=== PATIENT | female | born 1990 ===

== ENCOUNTER 2017-01-07 09:38 | Emergency (ER) | payer SELFPAY ==
[2017-01-07 09:47] VITALS: BP 129/75; BMI 40.7
--- NOTE | 2017-01-07 10:37 | DR.PREG ---
HPI - Time seen Time seen: 10:33 - PCP Primary Care Physician: [facility] - Chief Complaint Chief Complaint Doctors Comments: Patient states she is 5-6 weeks and has been spotting a little with stomach cramps for the past two days. Patient states she has been having suprapubic cramps like when she has her period and had a small clot with two areas of spotting on her pad. she is a patient at the [facility]. States her last period was 22 November 2016. She denies dysuria, hematuria, cold, cough, fever or chills. States this is her first and she has not had sex x2 weeks. States her stomach is not hurting just having cramps at times. Chief Complaint:: bleeding slightly, 6 weeks - Nurses Notes Reviewed Nurses Notes Review: Yes - Source History Provided: Patient, Family Member - Mode of Arrival Mode of Arrival: Ambulatory - Context Complains of: Vaginal bleeding History of: None : 1 Care: Yes - Location Location: pain: Suprapubic - Quality Pain: Cramping Vaginal fluid leakage color: Deferred - Timing Onset of Chief Complaint: 01/07/17 Came on: Gradually Pain: Present Now Pain: None - Severity Vaginal Bleeding: Deferred Vaginal Leakage: None - Associated Signs & Symptoms Asociated signs & symptoms: None PMH - PMH Past Medical History: No Past Surgical History: No - Family History History of Family Medical Conditions: Yes Family Medical History: Diabetes Mellitus, Hypertension - Social History Does patient currently use any type of tobacco product: No Have you used tobacco products in the last 12 months: No Type of Tobacco Use: None Does any household member use tobacco: No Alcohol Use: None Do you use any recreational Drugs:: No Lives With: Spouse Lives Where: Home - infectious screening In the last 2 months have you had wt loss of >10#?: NO Have you had fever, night sweats or hemotysis?: No Have you traveled outside the country in the last 6 months?: No Isolation: Standard ROS - Review of Systems Constitutional: No Symptoms Reported. negative: See HPI, Chills, Diaphoresis, Fever, Malaise, Weakness, Irritable, Fatigue, Loss of Appetite, Other Eyes: No Symptoms Reported. negative: See HPI, Eye Pain, Blurred Vision, Tearing, Discharge, Photophobia, Diplopia, Other ENTM: No Symptoms Reported Respiratoy: No Symptoms Reported. negative: See HPI, Productive Cough, Non- Productive Cough, Moist Cough, Dry Cough, Hacking Cough, Barking Cough, Brassy Cough, Orthopnea, Short of Breath, Stridor, Wheezing, Hemoptysis, Other Cardiovascular: No Symptoms Reported. negative: See HPI, Chest Pain, Edema, Palpitations, Syncope, Cyanosis, Skin Mottling, Other Gastrointestinal/Abdominal: No Symptoms Reported. negative: See HPI, Abdominal Pain, Constipation, Diarrhea, Nausea, Vomiting, Food Intolerance, Other Genitourinary: No Symptoms Reported. negative: See HPI, Discharge, Dysuria, Frequency, Hematuria, Pain, Bleeding, Other Neurological: No Symptoms Reported Musculoskeletal: No Symptoms Reported Integumentary: No Symptoms Reported. negative: See HPI, Change in Color, Change in Hair/Nails, Dryness, Lesions, Lumps, Rash, Itching, Wound, Bruises, Juandice, Other Hematologic/Lymphatic: No Symptoms Reported Endocrine: No Symptoms Reported Psychiatric: No Symptoms Reported PE - Vital Signs Vitals: Temperature 98.5 F Pulse Rate 90 Respiratory Rate 20 Blood Pressure 129/75 O2 Sat by Pulse Oximetry 100 - General Limitations: No Limitations General Appearance: Alert, In No Apparent Distress - Head Head Exam: Normal Inspection, Atraumatic, Normocephalic - Eyes Eye exam: Normal Appearance, PERRL, EOMI. negative: Scleral Icterus, Conjunctival Injection, Nystagmus, Miosis, Mydrasis, Periorbital Swelling, Periorbital Tenderness, Other - ENT ENT Exam: Normal Exam, Normal Oropharynx, Normal External Ear Exam, Mucous Membranes Moist, TM's Normal Bilaterally - Neck Neck Exam: Normal Inspection, Full ROM, Trachea Midline. negative: Tenderness, Meningismus, Lymphadenopathy, Thyromegaly, Other - Chest Chest Inspection: Normal Inspection, Symmetric Chest Wall Rise. negative: Tenderness, Rash, Abscess, Other - Respiratory Respiratory Exam: Normal Lung Sounds Bilat Respiratory Exam: Bilateral Clear to Auscultation - Cardiovascular Cardiovascular Exam: Regular Rate, Normal Rhythm, Normal Heart Sounds. negative : Bradycardia, Tachycardia, Irregular Rhythm, Systolic Murmur, Diastolic Murmur , Rubs, Gallop, Clicks, JVD, +S1, +S2, +S3, +S4, Other - Abdominal Exam Abdominal Exam: Normal Inspection, Normal Bowel Sounds, Soft. negative: Distention, Tenderness, Guarding, Rebound, Rigidity, Dimnished Bowel Sounds, Hyperactive Bowel Sounds, Hypoactive Bowel Sounds, Organomegaly, Trauma, Incision, Ascites, Mass, Bruit, Pulsatile Mass, Hernia, Other Abdominal Tenderness: negative: RUQ, RLQ, LUQ, LLQ, Epigastrium, Suprapubic, Diffuse, Mild, Moderate, Severe, Other - Exam Type: N/A - Back Back Exam: Normal Inspection, Full ROM. negative: Tenderness, (R) CVA Tenderness, (L) CVA Tenderness, Muscle Spasm, Paraspinal Tenderness, Vertebral Tenderness, Rashes, (R) Sciatic Notch Tenderness, (L) Sciatic Notch Tendern, (R ) Straight Leg Raise, (L) Straight Leg Raise, Other - Extremeties Extremities Exam: Normal Inspection, Full ROM, Normal Capillary Refill. negative: Tenderness, Edema, Joint Swelling, Calf Tenderness, Other - Neurologic Neurological Exam: Alert, Oriented X3, CN II-XII Intact, Normal Gait, Reflexes Normal. negative: Motor Sensory Deficit, Other - Psychiatric Psychiatric Exam: Normal Affect, Normal Mood. negative: Depressed, Agitated, Anxious, Flat Affect, Manic, Homicidal Ideation, Suicidal Ideation, Other - Skin Skin Exam: Warm, Dry, Intact, Normal Color. negative: Rash, Cyanosis, Diaphoresis, Erythema, Pallor, Mottled, Other ROR - Labs Reviewed Laboratory Results Reviewed?: Yes (all labs results reviewed and discussed with patient and family) Result Diagrams: 01/07/17 10:52 01/07/17 10:52 Laboratory: WBC 9.2 X10^3/uL (3.6-10.0) 01/07/17 10:52 RBC 4.85 X10^6/uL (3.5-5.4) 01/07/17 10:52 Hgb 11.1 g/dL (12.0-16.0) L 01/07/17 10:52 Hct 33.3 % (36.0-47.0) L 01/07/17 10:52 MCV 68.7 fL (80.0-100.0) L 01/07/17 10:52 MCH 22.8 pg (27.0-34.0) L 01/07/17 10:52 MCHC 33.2 g/dL (33.0-35.0) 01/07/17 10:52 RDW 17.6 % (11.6-16.5) H 01/07/17 10:52 Plt Count 452 X10^3/uL (150.0-450.0) H 01/07/17 10:52 Plt Count Comment Adequate (ADEQUATE) 01/07/17 10:52 MPV 7.5 fL (7.4-11.0) 01/07/17 10:52 Neut % 59.5 % (42.0-75.0) 01/07/17 10:52 Lymph % 29.9 % (21.0-51.0) 01/07/17 10:52 [place] % 7.3 % (0.0-13.0) 01/07/17 10:52 Eos % 2.8 % (0.9-2.9) 01/07/17 10:52 Baso % 0.5 % (0.2-1.0) 01/07/17 10:52 Neut # 5.5 x10^3/uL (2.2-4.8) H 01/07/17 10:52 Lymph # 2.8 X10^3/uL (1.3-2.9) 01/07/17 10:52 [place] # 0.7 x10^3/uL (0.3-0.8) 01/07/17 10:52 Eos # 0.3 x10^3/uL (0.0-0.2) H 01/07/17 10:52 Baso # 0.0 X10^3/uL (0.0-0.1) 01/07/17 10:52 Absolute Nucleated RBC 0.0 /100WBC 01/07/17 10:52 Plt Morphology Comment Normal (NORMAL) 01/07/17 10:52 RBC Morphology Abnormal (NORMAL) A 01/07/17 10:52 Hypochromasia 1+ A 01/07/17 10:52 Microcytosis 1+ A 01/07/17 10:52 Sodium 140 mmol/L (136-145) 01/07/17 10:52 Corrected Sodium TNP 01/07/17 10:52 Potassium 4.0 mmol/L (3.5-5.1) 01/07/17 10:52 Chloride 106 mmol/L (98-107) 01/07/17 10:52 Carbon Dioxide 27.0 mmol/L (21-32) 01/07/17 10:52 BUN 10 mg/dL (7-18) 01/07/17 10:52 Creatinine 0.63 mg/dL (0.55-1.02) 01/07/17 10:52 Est GFR (MDRD) Af Amer > 60 (>60) 01/07/17 10:52 Est GFR (MDRD) Non-Af > 60 (>60) 01/07/17 10:52 Glucose 101 mg/dL (65-99) H 01/07/17 10:52 Calcium 8.4 mg/dL (8.5-10.1) L 01/07/17 10:52 HCG, Quant 18 mIU/mL (0-6) H 01/07/17 10:52 Specimen Type Clean catch urine 01/07/17 11:06 Urine Color Yellow (YELLOW) 01/07/17 11:06 Urine Appearance Clear (CLEAR) 01/07/17 11:06 Urine pH 8.0 (5.0 - 8.0) 01/07/17 11:06 Ur Specific [place] 1.010 (1.000-1.030) 01/07/17 11:06 Urine Protein Negative (NEGATIVE) 01/07/17 11:06 Urine Glucose (UA) Negative (NEGATIVE) 01/07/17 11:06 Urine Ketones Negative (NEGATIVE) 01/07/17 11:06 Urine Occult Blood 5+ (NEGATIVE) 01/07/17 11:06 Urine Nitrite Negative (NEGATIVE) 01/07/17 11:06 Urine Bilirubin Negative (NEGATIVE) 01/07/17 11:06 Urine Urobilinogen Normal (NORMAL) 01/07/17 11:06 Ur Leukocyte Esterase Negative (NEGATIVE) 01/07/17 11:06 Urine RBC 0-3 /HPF (NEGATIVE) 01/07/17 11:06 Urine WBC 0-3 /HPF (NEGATIVE) 01/07/17 11:06 Ur Squamous Epith Cells Negative /HPF (NEGATIVE) 01/07/17 11:06 Urine Bacteria Trace /HPF (NEGATIVE) 01/07/17 11:06 Ur Culture Indicated? No/not indicated 01/07/17 11:06 - Diagnosis Discharge Problem: at early stage, Vaginal bleeding in , Anemia - Discharge Plan Disposition: HOME, SELF-CARE Condition: Stable - Follow ups/Referrals Follow ups/Referrals: NFD,None [Primary Care Provider] - 3 days MANAV BEY [STAFF PHYSICIAN] - 3 days - Instructions Instructions: Vaginal Bleeding During , First Trimester, Pelvic Rest, Threatened Miscarriage, [id number]
[2017-01-07 11:05] LABS: BLOOD UREA NITROGEN 10 mg/dL (7-18); CALCIUM 8.4 mg/dL (8.5-10.1); CHLORIDE 106 mmol/L (98-107); CREATININE 0.63 mg/dL (0.55-1.02); GLUCOSE 101 mg/dL (65-99); SODIUM 140 mmol/L (136-145); eGFR BLACK RACES > 60 (>60); eGFR NON BLACK RACES > 60 (>60)
[2017-01-07 11:11] LABS: BASOPHILS % (AUTO) 0.5 % (0.2-1.0); EOSINOPHILS # (AUTO) 0.3 x10^3/uL (0.0-0.2); EOSINOPHILS % (AUTO) 2.8 % (0.9-2.9); HEMATOCRIT 33.3 % (36.0-47.0); HEMOGLOBIN 11.1 g/dL (12.0-16.0); LYMPHOCYTES # (AUTO) 2.8 X10^3/uL (1.3-2.9); LYMPHOCYTES % (AUTO) 29.9 % (21.0-51.0); MEAN CORPUSCULAR HEMOGLOBIN 22.8 pg (27.0-34.0); MEAN CORPUSCULAR HGB CONC 33.2 g/dL (33.0-35.0); MEAN CORPUSCULAR VOLUME 68.7 fL (80.0-100.0); MEAN PLATELET VOLUME 7.5 fL (7.4-11.0); MONOCYTES # (AUTO) 0.7 x10^3/uL (0.3-0.8); MONOCYTES % (AUTO) 7.3 % (0.0-13.0); NEUTROPHILS # (AUTO) 5.5 x10^3/uL (2.2-4.8); NEUTROPHILS % (AUTO) 59.5 % (42.0-75.0); PLATELET COUNT 452 X10^3/uL (150.0-450.0); RED BLOOD COUNT 4.85 X10^6/uL (3.5-5.4); RED CELL DISTRIBUTION WIDTH 17.6 % (11.6-16.5); WHITE BLOOD COUNT 9.2 X10^3/uL (3.6-10.0)
[2017-01-07 11:20] LABS: HCG,QUANTITATIVE 18 mIU/mL (0-6)
[2017-01-07 11:21] LABS: BILIRUBIN,URINE NEGATIVE (NEGATIVE); BLOOD/HEMOGLOBIN,URINE 5+ (NEGATIVE); GLUCOSE, URINE NEGATIVE (NEGATIVE); KETONES,URINE NEGATIVE (NEGATIVE); LEUKOCYTE ESTERASE ,URINE NEGATIVE (NEGATIVE); NITRITES,URINE NEGATIVE (NEGATIVE); PROTEIN,URINE NEGATIVE (NEGATIVE); UROBILINOGEN,URINE NORMAL (NORMAL)
[2017-01-07 11:25] LABS: HYPOCHROMASIA 1+; MICROCYTOSIS 1+; PLATELET MORPHOLOGY COMMENT NORMAL (NORMAL)
[2017-01-07 11:32] LABS: APPEARANCE,URINE CLEAR (CLEAR); BACTERIA,URINE TRACE /HPF (NEGATIVE); COLOR,URINE YELLOW (YELLOW); RBC,URINE 0-3 /HPF (NEGATIVE); SQUAMOUS EPITHELIAL CELL,UR NEGATIVE /HPF (NEGATIVE)
== END 2017-01-07 12:05 | disposition home or self-care (01) ==
LOC: ER 10:00
DX: O20.8 Other hemorrhage in early pregnancy (principal); D64.89 Other specified anemias; Z3A.01 Less than 8 weeks gestation of pregnancy
CPT/HCPCS: 36415; 80048; 81001; 84702; 85025; 99282

== ENCOUNTER 2017-07-29 13:12 | Emergency (ER) | payer MEDICAID, OTHER ==
[2017-07-29 13:16] VITALS: BP 130/81; BMI 42.7
[2017-07-29 15:39] LABS: BILIRUBIN,URINE NEGATIVE (NEGATIVE); BLOOD/HEMOGLOBIN,URINE NEGATIVE (NEGATIVE); GLUCOSE, URINE NEGATIVE (NEGATIVE); KETONES,URINE NEGATIVE (NEGATIVE); LEUKOCYTE ESTERASE ,URINE 1+ (NEGATIVE); NITRITES,URINE NEGATIVE (NEGATIVE); PROTEIN,URINE 1+ (NEGATIVE); UROBILINOGEN,URINE NORMAL (NORMAL)
--- NOTE | 2017-07-29 15:42 | DR.GENAD ---
HPI - PCP Primary Care Physician: JUAN J - Complaint/Symptoms Chief Complaint Doctors Comments: Patient states she is ten weeks and has been cramping for the past three days. States she went to see her TRAFFIC CHIEF last week when she was spotting and the doctor told her to watch her symtoms presently. state they did a HCG titer and it was 1375 and they did an ultrasound and the baby heart rate was 180. States she had a miscarriage recently and is wanting to hear the baby's heart rate. States she is not spotting and is not cramping presently but yesterday she was crying with pain from cramping. She denies vaginal bleeding or any tissure passage. She denies cold, cough, fever or chills. She denes hematuria. Chief Complaint:: PT C/O ABD CRAMPING. PT STATES SHE IS 10 6/7 . PT STATES SHE THINKS SHE IS HAVING A MISCARRIAGE. PT STATES SHE HAS HAD A PREVIOUS MISSCARRIAGE IN THE PAST AND SHE IS HAVING THE SAME FEELING. PT HAS SOME BLEEDING LAST WEEK AND SEEN HER OBGYN. BLEEDING HAS SUBSIDED. - Nurses notes reviewed Nurses Notes Review: Yes - Source History Provided: Patient - Mode of Arrival Mode of Arrival: Ambulatory - Timing Onset of Chief Complaint: 07/28/17 Came on: Gradually - Duration Duration: Intermittent How lon Duration: Days - Location Location: abdominal cramping - Severity Severity: Mild - Modifying Factors Worsens:: nothing Improves:: nothing PMH - PMH Past Medical History: No Past Surgical History: No - Family History History of Family Medical Conditions: Yes Family Medical History: Diabetes Mellitus, Hypertension - Social History Does any household member use tobacco: No Alcohol Use: None Do you use any recreational Drugs:: No Lives With: Family Lives Where: Home - infectious screening In the last 2 months have you had wt loss of >10#?: NO Have you had fever, night sweats or hemotysis?: No Have you traveled outside the country in the last 6 months?: No Isolation: Standard ROS - Review of Systems Constitutional: No Symptoms Reported. negative: See HPI, Chills, Diaphoresis, Fever, Malaise, Weakness, Irritable, Fatigue, Loss of Appetite, Other Eyes: No Symptoms Reported ENTM: No Symptoms Reported Respiratoy: No Symptoms Reported. negative: See HPI, Productive Cough, Non- Productive Cough, Moist Cough, Dry Cough, Hacking Cough, Barking Cough, Brassy Cough, Orthopnea, Short of Breath, Stridor, Wheezing, Hemoptysis, Other Cardiovascular: No Symptoms Reported Gastrointestinal/Abdominal: No Symptoms Reported. negative: See HPI, Abdominal Pain, Constipation, Diarrhea, Nausea, Vomiting, Food Intolerance, Other Genitourinary: No Symptoms Reported Neurological: No Symptoms Reported Musculoskeletal: No Symptoms Reported Integumentary: No Symptoms Reported Hematologic/Lymphatic: No Symptoms Reported Endocrine: No Symptoms Reported Psychiatric: No Symptoms Reported PE - Vital Signs Vitals: Temperature 98.1 F Pulse Rate 115 Respiratory Rate 20 Blood Pressure 130/81 O2 Sat by Pulse Oximetry 100 - General Limitations: No Limitations General Appearance: Alert, In No Apparent Distress - Head Head Exam: Normal Inspection, Atraumatic, Normocephalic - Eyes Eye exam: Normal Appearance, PERRL, EOMI. negative: Scleral Icterus, Conjunctival Injection, Nystagmus, Miosis, Mydrasis, Periorbital Swelling, Periorbital Tenderness, Other - ENT ENT Exam: Normal Exam, Normal Oropharynx, Normal External Ear Exam, Mucous Membranes Moist, TM's Normal Bilaterally External Ear Exam: Normal External Inspection TM/Canal Exam: Bilateral Normal Nose Exam: Normal Nose Exam Mouth Exam: Normal Inspection Throat Exam: Normal Inspection - Neck Neck Exam: Normal Inspection, Full ROM, Trachea Midline. negative: Tenderness, Meningismus, Lymphadenopathy, Thyromegaly, Other - Chest Chest Inspection: Normal Inspection, Symmetric Chest Wall Rise - Respiratory Respiratory Exam: Normal Lung Sounds Bilat Respiratory Exam: Bilateral Clear to Auscultation - Cardiovascular Cardiovascular Exam: Regular Rate, Normal Rhythm, Normal Heart Sounds - Abdominal Exam Abdominal Exam: Normal Inspection, Normal Bowel Sounds, Soft. negative: Distention, Tenderness, Guarding, Rebound, Rigidity, Dimnished Bowel Sounds, Hyperactive Bowel Sounds, Hypoactive Bowel Sounds, Organomegaly, Trauma, Incision, Ascites, Mass, Bruit, Pulsatile Mass, Hernia, Other Abdominal Tenderness: negative: RUQ, RLQ, LUQ, LLQ, Epigastrium, Suprapubic, Diffuse, Mild, Moderate, Severe, Other - Extremities Extremities Exam: Normal Inspection, Full ROM, Normal Capillary Refill. negative: Tenderness, Edema, Joint Swelling, Calf Tenderness, Other - Back Back Exam: Normal Inspection, Full ROM - Neurologic Neurological Exam: Alert, Oriented X3, CN II-XII Intact, Normal Gait, Reflexes Normal - Psychiatric Psychiatric Exam: Normal Affect, Normal Mood - Skin Skin Exam: Warm, Dry, Intact, Normal Color ROR - Labs Reviewed Laboratory Results Reviewed?: Yes (All labs land xray results reviewed and discussed with patient.) Result Diagrams: 07/29/17 15:54 07/29/17 15:54 Laboratory: WBC 9.3 X10^3/uL (3.6-10.0) 07/29/17 15:54 RBC 5.02 X10^6/uL (3.5-5.4) 07/29/17 15:54 Hgb 11.6 g/dL (12.0-16.0) L 07/29/17 15:54 Hct 35.1 % (36.0-47.0) L 07/29/17 15:54 MCV 69.9 fL (80.0-100.0) L 07/29/17 15:54 MCH 23.1 pg (27.0-34.0) L 07/29/17 15:54 MCHC 33.1 g/dL (33.0-35.0) 07/29/17 15:54 RDW 16.8 % (11.6-16.5) H 07/29/17 15:54 Plt Count 459 X10^3/uL (150.0-450.0) H 07/29/17 15:54 Plt Count Comment Increased (ADEQUATE) A 07/29/17 15:54 MPV 7.7 fL (7.4-11.0) 07/29/17 15:54 Neut % 63.1 % (42.0-75.0) 07/29/17 15:54 Lymph % 26.0 % (21.0-51.0) 07/29/17 15:54 [place] % 8.1 % (0.0-13.0) 07/29/17 15:54 Eos % 2.4 % (0.9-2.9) 07/29/17 15:54 Baso % 0.4 % (0.2-1.0) 07/29/17 15:54 Neut # 5.9 x10^3/uL (2.2-4.8) H 07/29/17 15:54 Lymph # 2.4 X10^3/uL (1.3-2.9) 07/29/17 15:54 [place] # 0.8 x10^3/uL (0.3-0.8) 07/29/17 15:54 Eos # 0.2 x10^3/uL (0.0-0.2) 07/29/17 15:54 Baso # 0.0 X10^3/uL (0.0-0.1) 07/29/17 15:54 Absolute Nucleated RBC 0.0 /100WBC 07/29/17 15:54 Plt Morphology Comment Normal (NORMAL) 07/29/17 15:54 RBC Morphology Abnormal (NORMAL) A 07/29/17 15:54 Hypochromasia 1+ A 07/29/17 15:54 Microcytosis 1+ A 07/29/17 15:54 Sodium 139 mmol/L (136-145) 07/29/17 15:54 Corrected Sodium TNP 07/29/17 15:54 Potassium 3.6 mmol/L (3.5-5.1) 07/29/17 15:54 Chloride 104 mmol/L (98-107) 07/29/17 15:54 Carbon Dioxide 23.2 mmol/L (21-32) 07/29/17 15:54 BUN 10 mg/dL (7-18) 07/29/17 15:54 Creatinine 0.60 mg/dL (0.55-1.02) 07/29/17 15:54 Est GFR (MDRD) Af Amer > 60 (>60) 07/29/17 15:54 Est GFR (MDRD) Non-Af > 60 (>60) 07/29/17 15:54 Glucose 100 mg/dL (65-99) H 07/29/17 15:54 Calcium 9.0 mg/dL (8.5-10.1) 07/29/17 15:54 HCG, Quant 181356 mIU/mL (0-6) H 07/29/17 15:54 Specimen Type Clean catch urine 07/29/17 15:26 Urine Color Yellow (YELLOW) 07/29/17 15:26 Urine Appearance Cloudy (CLEAR) 07/29/17 15:26 Urine pH 7.0 (5.0 - 8.0) 07/29/17 15:26 Ur Specific [place] 1.020 (1.000-1.030) 07/29/17 15:26 Urine Protein 1+ (NEGATIVE) 07/29/17 15:26 Urine Glucose (UA) Negative (NEGATIVE) 07/29/17 15:26 Urine Ketones Negative (NEGATIVE) 07/29/17 15:26 Urine Occult Blood Negative (NEGATIVE) 07/29/17 15:26 Urine Nitrite Negative (NEGATIVE) 07/29/17 15:26 Urine Bilirubin Negative (NEGATIVE) 07/29/17 15:26 Urine Urobilinogen Normal (NORMAL) 07/29/17 15:26 Ur Leukocyte Esterase 1+ (NEGATIVE) 07/29/17 15:26 Urine RBC None seen /HPF (NONE SEEN) 07/29/17 15:26 Urine WBC 0 - 3 /HPF (NONE SEEN) 07/29/17 15:26 Ur Squamous Epith Cells Many /HPF (NEGATIVE) 07/29/17 15:26 Amorphous Sediment 3+ /HPF (NEGATIVE) 07/29/17 15:26 Urine Bacteria Trace /HPF (NEGATIVE) 07/29/17 15:26 Hyaline Casts Rare /LPF (NEGATIVE) 07/29/17 15:26 Urine Mucus Moderate /HPF (NEGATIVE) 07/29/17 15:26 Ur Culture Indicated? No/not indicated 07/29/17 15:26 - XRAY XRAY Interpreted by: Radiologist (US: Single intrauterine with EGA 12 weeks fetalheart tones 166) - Diagnosis Discharge Problem: at early stage Abdominal pain during Qualifiers: Trimester: first trimester Qualified Code(s): O26.891 - Other specified related conditions, first trimester; R10.9 - Unspecified abdominal pain; R10.9 - Unspecified abdominal pain - Discharge Plan Disposition: 01 HOME, SELF-CARE Condition: Stable - Follow ups/Referrals Follow ups/Referrals: TYLER ARITA [Primary Care Provider] - 3 days - Instructions Instructions: Abdominal Pain During , [id number], First Trimester of
[2017-07-29 15:47] LABS: APPEARANCE,URINE CLOUDY (CLEAR); COLOR,URINE YELLOW (YELLOW)
[2017-07-29 15:54] LABS: RBC,URINE NONE SEEN /HPF (NONE SEEN)
[2017-07-29 15:55] LABS: AMORPHOUS SEDIMENT,UR 3+ /HPF (NEGATIVE); BACTERIA,URINE TRACE /HPF (NEGATIVE); HYALINE CASTS, URINE RARE /LPF (NEGATIVE); MUCUS,URINE MODERATE /HPF (NEGATIVE); SQUAMOUS EPITHELIAL CELL,UR MANY /HPF (NEGATIVE)
[2017-07-29 16:14] LABS: BLOOD UREA NITROGEN 10 mg/dL (7-18); CARBON DIOXIDE 23.2 mmol/L (21-32); CHLORIDE 104 mmol/L (98-107); SODIUM 139 mmol/L (136-145); eGFR BLACK RACES > 60 (>60); eGFR NON BLACK RACES > 60 (>60)
[2017-07-29 16:18] LABS: BASOPHILS % (AUTO) 0.4 % (0.2-1.0); EOSINOPHILS # (AUTO) 0.2 x10^3/uL (0.0-0.2); EOSINOPHILS % (AUTO) 2.4 % (0.9-2.9); HEMATOCRIT 35.1 % (36.0-47.0); HEMOGLOBIN 11.6 g/dL (12.0-16.0); LYMPHOCYTES # (AUTO) 2.4 X10^3/uL (1.3-2.9); MEAN CORPUSCULAR HEMOGLOBIN 23.1 pg (27.0-34.0); MEAN CORPUSCULAR HGB CONC 33.1 g/dL (33.0-35.0); MEAN CORPUSCULAR VOLUME 69.9 fL (80.0-100.0); MEAN PLATELET VOLUME 7.7 fL (7.4-11.0); MONOCYTES # (AUTO) 0.8 x10^3/uL (0.3-0.8); MONOCYTES % (AUTO) 8.1 % (0.0-13.0); NEUTROPHILS # (AUTO) 5.9 x10^3/uL (2.2-4.8); NEUTROPHILS % (AUTO) 63.1 % (42.0-75.0); PLATELET COUNT 459 X10^3/uL (150.0-450.0); RED BLOOD COUNT 5.02 X10^6/uL (3.5-5.4); RED CELL DISTRIBUTION WIDTH 16.8 % (11.6-16.5); WHITE BLOOD COUNT 9.3 X10^3/uL (3.6-10.0)
[2017-07-29 16:33] LABS: HYPOCHROMASIA 1+; MICROCYTOSIS 1+; PLATELET MORPHOLOGY COMMENT NORMAL (NORMAL)
[2017-07-29 16:46] LABS: HCG,QUANTITATIVE 104046 mIU/mL (0-6)
--- NOTE | 2017-07-29 18:39 | US ---
History: 26-year-old female with abdominal pain. Exam: Limited Pelvic ultrasound Comparison: None. Technique: Multiple grayscale and color flow Doppler images of the pelvis were obtained. Findings: Last menstrual period: 05/06/2017. Quantitative beta HC,046. The uterus is normal appearance and contains a single intrauterine with crown-rump length o f 4 cm and heart tones of 166 beats per minute. No evidence for myometrial masses or calcifica tions can be observed. EGA 12 weeks 0 days for SEBAS 02/10/2018. IMPRESSION: 1. Single intrauterine with EGA of 12 weeks 0 days for SEBAS 02/10/2018 with heart tone s 166 beats per minute. Follow-up with OB. Reported By:
== END 2017-07-29 19:01 | disposition home or self-care (01) ==
LOC: ER 13:21
DX: O26.891 Other specified pregnancy related conditions, first trimester (principal); R10.84 Generalized abdominal pain; Z3A.12 12 weeks gestation of pregnancy
CPT/HCPCS: 36415; 76801; 80048; 81001; 84702; 85025; 99282; 99284

== ENCOUNTER 2018-02-03 06:35 | Inpatient (IN) ==
[2018-02-03 06:47] VITALS: BMI 46.5
[2018-02-03] MEDS ORDERED: LR 1000 ML IV 1,000 ML IV ONE (07:20)
[2018-02-03] MEDS ORDERED: ANCEF 1 GRAM IV PREMIX* 2 G/100 ML BAG IV ONE (07:55)
[2018-02-03] MEDS ORDERED: REGLAN INJ 10 MG VIAL IVP PRN ×2 (08:00→10:09)
[2018-02-03] MEDS ORDERED: ZOFRAN INJ 4 MG VIAL IVP PRN ×2 (08:00→10:09)
[2018-02-03] MEDS ORDERED: BENADRYL INJ 50 MG VIAL IVP PRN ×2 (08:00→10:09)
[2018-02-03] MEDS ORDERED: PHENERGAN INJ 25 MG IVP PRN (08:00)
[2018-02-03] MEDS ORDERED: DILAUDID INJ IVP PRN (08:00)
[2018-02-03] MEDS ORDERED: DURAMORPH ONE (08:03)
[2018-02-03] MEDS ORDERED: D5 1/2 NS 1L W PITOCIN 20 UNITS/L 20 UNITS/1,000 ML BAG IV ONE ×2 (08:32→19:34)
[2018-02-03] MEDS ORDERED: PITOCIN ONE (09:02)
[2018-02-03] MEDS ORDERED: VERSED ONE (09:02)
[2018-02-03] MEDS ORDERED: EPHEDRINE SULFATE INJ ONE (09:02)
[2018-02-03] MEDS ORDERED: XYLOCAINE 1 % (PLAIN) ONE (09:02)
[2018-02-03] MEDS ORDERED: MARCAINE SPINAL ONE (09:02)
[2018-02-03 09:06] LABS: BILIRUBIN,URINE NEGATIVE (NEGATIVE); BLOOD/HEMOGLOBIN,URINE 1+ (NEGATIVE); GLUCOSE, URINE NEGATIVE (NEGATIVE); KETONES,URINE NEGATIVE (NEGATIVE); LEUKOCYTE ESTERASE ,URINE 1+ (NEGATIVE); NITRITES,URINE NEGATIVE (NEGATIVE); PROTEIN,URINE 1+ (NEGATIVE); UROBILINOGEN,URINE NORMAL (NORMAL)
[2018-02-03 09:24] LABS: APPEARANCE,URINE CLEAR (CLEAR); COLOR,URINE YELLOW (YELLOW)
[2018-02-03 09:26] LABS: BACTERIA,URINE NEGATIVE /HPF (NEGATIVE); RBC,URINE 0-2 /HPF (NONE SEEN); SQUAMOUS EPITHELIAL CELL,UR FEW /HPF (NEGATIVE)
[2018-02-03 09:27] LABS: AMORPHOUS SEDIMENT,UR TRACE /HPF (NEGATIVE); HYALINE CASTS, URINE RARE /LPF (NEGATIVE); MUCUS,URINE FEW /HPF (NEGATIVE)
[2018-02-03] MEDS ORDERED: MAGNESIUM SULFATE 40 GRAMS IV 40 G/1,000 ML BAG IV ONE (09:44)
[2018-02-03] MEDS ORDERED: NARCAN INJ IVP PRN (10:09)
[2018-02-03] MEDS ORDERED: MAGNESIUM SULFATE 40 GRAMS IV 40 G/1,000 ML BAG IV PRN (10:09)
[2018-02-03] MEDS ORDERED: D5 1/2 NS 1000 ML 1,000 ML with PITOCIN 20 UNITS IV SCH ×2 (10:09)
[2018-02-03] MEDS ORDERED: ADACEL or BOOSTRIX TDaP VACCINE IM ONE (10:09)
[2018-02-03] MEDS ORDERED: MYLICON TAB 80 MG CHEW PO PRN (10:09)
[2018-02-03] MEDS ORDERED: PERCOCET TAB 5/325 MG PO PRN (10:09)
[2018-02-03 17:05] LABS: BASOPHILS # (AUTO) 0.1 X10^3/uL (0.0-0.1); BASOPHILS % (AUTO) 0.3 % (0.2-1.0); EOSINOPHILS % (AUTO) 0.1 % (0.9-2.9); HEMATOCRIT 38.7 % (36.0-47.0); HEMOGLOBIN 13.2 g/dL (12.0-16.0); LYMPHOCYTES # (AUTO) 1.7 X10^3/uL (1.3-2.9); MEAN CORPUSCULAR HEMOGLOBIN 27.4 pg (27.0-34.0); MEAN CORPUSCULAR VOLUME 80.6 fL (80.0-100.0); MEAN PLATELET VOLUME 8.3 fL (7.4-11.0); MONOCYTES # (AUTO) 0.6 x10^3/uL (0.3-0.8); MONOCYTES % (AUTO) 3.5 % (0.0-13.0); NEUTROPHILS # (AUTO) 16.2 x10^3/uL (2.2-4.8); NEUTROPHILS % (AUTO) 87.1 % (42.0-75.0); PLATELET COUNT 395 X10^3/uL (150.0-450.0); RED CELL DISTRIBUTION WIDTH 16.3 % (11.6-16.5); WHITE BLOOD COUNT 18.6 X10^3/uL (3.6-10.0)
[2018-02-03 17:26] LABS: ALANINE AMINOTRANSFERASE 23 Units/L (12-78); ASPARTATE AMINO TRANSFERASE 32 Units/L (15-37); BLOOD UREA NITROGEN 9 mg/dL (7-18); CALCIUM 8.3 mg/dL (8.5-10.1); CARBON DIOXIDE 25.5 mmol/L (21-32); CHLORIDE 100 mmol/L (98-107); COR NA(FOR HYPERGLY) 133 mmol/L (136-145); CREATININE 0.75 mg/dL (0.55-1.02); LACTATE DEHYDROGENASE 280 Units/L (81-234); SODIUM 132 mmol/L (136-145); URIC ACID 4.5 mg/dL (2.6-6.0); eGFR NON BLACK RACES > 60 (>60)
[2018-02-03] MEDS: TORADOL 30 MG VIAL IVP PRN (19:35)
[2018-02-03] MEDS: D5 1/2 NS 1000 ML 1,000 ML with PITOCIN 20 UNITS IV SCH ×2 (21:17)
[2018-02-03] MEDS: ZANTAC PO SCH (21:17)
[2018-02-04] MEDS: TORADOL 30 MG VIAL IVP PRN (04:09)
[2018-02-04 05:45] LABS: BASOPHILS % (AUTO) 0.2 % (0.2-1.0); EOSINOPHILS # (AUTO) 0.1 x10^3/uL (0.0-0.2); EOSINOPHILS % (AUTO) 0.6 % (0.9-2.9); HEMATOCRIT 37.2 % (36.0-47.0); HEMOGLOBIN 12.6 g/dL (12.0-16.0); LYMPHOCYTES # (AUTO) 2.8 X10^3/uL (1.3-2.9); LYMPHOCYTES % (AUTO) 14.3 % (21.0-51.0); MEAN CORPUSCULAR HEMOGLOBIN 26.8 pg (27.0-34.0); MEAN CORPUSCULAR HGB CONC 33.9 g/dL (33.0-35.0); MEAN PLATELET VOLUME 8.5 fL (7.4-11.0); MONOCYTES % (AUTO) 4.9 % (0.0-13.0); NEUTROPHILS # (AUTO) 15.7 x10^3/uL (2.2-4.8); PLATELET COUNT 335 X10^3/uL (150.0-450.0); RED BLOOD COUNT 4.71 X10^6/uL (3.5-5.4); RED CELL DISTRIBUTION WIDTH 16.5 % (11.6-16.5); WHITE BLOOD COUNT 19.6 X10^3/uL (3.6-10.0)
[2018-02-04 06:02] LABS: ALANINE AMINOTRANSFERASE 22 Units/L (12-78); ALBUMIN 1.9 g/dL (3.4-5.0); ALKALINE PHOSPHATASE 208 Units/L (46-116); ASPARTATE AMINO TRANSFERASE 33 Units/L (15-37); BLOOD UREA NITROGEN 7 mg/dL (7-18); CALCIUM 7.7 mg/dL (8.5-10.1); CHLORIDE 98 mmol/L (98-107); COR CA(FOR HYPOALB) 9.4 mg/dL (8.5-10.1); CREATININE 0.74 mg/dL (0.55-1.02); LACTATE DEHYDROGENASE 290 Units/L (81-234); MAGNESIUM 6.2 mg/dL (1.7-2.9); SODIUM 131 mmol/L (136-145); eGFR NON BLACK RACES > 60 (>60)
[2018-02-04] MEDS: COLACE CAP 100 MG PO SCH ×2 (08:52→21:28)
[2018-02-04] MEDS: ZANTAC PO SCH ×2 (08:53→21:28)
[2018-02-04] MEDS: D5 1/2 NS 1000 ML 1,000 ML with PITOCIN 20 UNITS IV SCH ×2 (08:53)
[2018-02-04] MEDS: PRENATAL PLUS PO SCH (08:53)
[2018-02-04] MEDS: BACTROBAN CREAM TOP SCH ×2 (13:33→21:28)
[2018-02-04] MEDS: MOTRIN TAB 800 MG PO PRN (15:40)
[2018-02-05] MEDS: MOTRIN TAB 800 MG PO PRN (02:00)
[2018-02-05] MEDS: BACTROBAN CREAM TOP SCH (05:17)
[2018-02-05] MEDS: COLACE CAP 100 MG PO SCH (09:24)
[2018-02-05] MEDS: PRENATAL PLUS PO SCH (09:24)
[2018-02-05] MEDS: ZANTAC PO SCH (09:25)
[2018-02-05 13:22] VITALS: BP 145/80
== END 2018-02-05 16:25 | disposition home or self-care (01) | DRG 765 ==
LOC: ER 06:35 → LD 07:34 → ICU 09:53 → MED/SURG 02-04 12:11
PROVIDERS: ADMIT Specialist; ATTEND Specialist
DX: Z37.0 Single live birth; O41.03X0 Oligohydramnios, third trimester, not applicable or unspecified; O13.3 Gestational [pregnancy-induced] hypertension without significant proteinuria, third trimester; O36.5930 Maternal care for other known or suspected poor fetal growth, third trimester, not applicable or unspecified; Z3A.37 37 weeks gestation of pregnancy; O14.93 Unspecified pre-eclampsia, third trimester
CPT/HCPCS: 36415; 76818; 80048; 80053; 81001; 81050; 83615; 83735; 84112; 84157; 84450; 84460; 84550; 85025; 85384; 85610; 85730; 86592; 96365; 99284; A4216; A4222; S0197; J0690; J1885; J2250; J2405; J2590; J2765; J3475; J3490; J7030; J7120; S5010

== ENCOUNTER 2021-09-15 06:14 | Inpatient (IN) ==
[2021-09-15] MEDS ORDERED: ANCEF VIAL 1 GRAM IVP ONE (06:32)
[2021-09-15] MEDS ORDERED: D5 1/2 NS 1,000 ML 1,000 ML IV SCH (06:32)
[2021-09-15] MEDS ORDERED: NS 100 ML IV 100 ML ONE (06:37)
[2021-09-15] MEDS ORDERED: LR 1,000 ML IV 1,000 ML IV ONE ×2 (06:37→09:05)
[2021-09-15] MEDS ORDERED: DILAUDID INJ ONE (06:57)
[2021-09-15] MEDS ORDERED: NEO-SYNEPHRINE INJ ONE (06:57)
[2021-09-15] MEDS ORDERED: MARCAINE SPINAL ONE (06:57)
[2021-09-15] MEDS ORDERED: ZOFRAN INJ 4 MG VIAL ONE ×2 (06:57→08:49)
[2021-09-15] MEDS ORDERED: PEPCID 20 MG VIAL ONE (06:57)
[2021-09-15] MEDS ORDERED: EPHEDRINE SULFATE INJ ONE (06:57)
[2021-09-15] MEDS ORDERED: XYLOCAINE-MPF 2% ONE (07:18)
[2021-09-15] MEDS ORDERED: D5 1/2 NS 1,000 mL + PITOCIN 20 UNITS/L IV 20 UNITS/1,000 ML BAG IV ONE ×2 (07:58→09:36)
[2021-09-15] MEDS ORDERED: TORADOL 30 MG VIAL ONE (08:33)
[2021-09-15] MEDS ORDERED: PHENERGAN INJ 25 MG IM ONE (08:49)
[2021-09-15] MEDS ORDERED: REGLAN INJ 10 MG VIAL IVP PRN ×2 (09:25→10:13)
[2021-09-15] MEDS ORDERED: DILAUDID INJ IVP PRN (09:25)
[2021-09-15] MEDS ORDERED: BARHEMSYS INJ IVP PRN (09:25)
[2021-09-15] MEDS ORDERED: BENADRYL INJ 50 MG VIAL IVP PRN ×2 (09:25→10:13)
[2021-09-15] MEDS ORDERED: PHENERGAN INJ 25 MG IM PRN (09:25)
[2021-09-15] MEDS ORDERED: ZOFRAN INJ 4 MG VIAL IVP PRN ×2 (09:25→10:13)
[2021-09-15] MEDS ORDERED: NARCAN INJ ONE (09:42)
[2021-09-15] MEDS ORDERED: PERCOCET TAB 5/325 MG PO PRN (10:13)
[2021-09-15] MEDS ORDERED: MYLICON TAB 80 MG CHEW PO PRN (10:13)
[2021-09-15] MEDS ORDERED: TORADOL 30 MG VIAL IVP PRN (10:13)
[2021-09-15] MEDS ORDERED: ADACEL or BOOSTRIX TDaP VACCINE IM ONE (10:13)
[2021-09-15] MEDS ORDERED: D5 1/2 NS 1,000 ML 1,000 ML with PITOCIN 20 UNITS IV SCH ×2 (10:13)
[2021-09-15] MEDS ORDERED: NARCAN INJ IVP PRN (10:13)
[2021-09-16 05:02] LABS: HEMATOCRIT 30.5 % (36.0-47.0)
[2021-09-16 05:15] LABS: HEMOGLOBIN 10.2 g/dL (12.0-16.0)
[2021-09-16] MEDS ORDERED: PERCOCET TAB 5/325 MG PO PRN (07:25)
[2021-09-16] MEDS: PRENATAL PLUS PO SCH (09:00)
[2021-09-16] MEDS: COLACE CAP 100 MG PO SCH ×2 (09:00→20:05)
[2021-09-16] MEDS: PROTONIX TAB 40 MG PO SCH (09:00)
[2021-09-16] MEDS: MOTRIN TAB 800 MG PO PRN ×2 (09:00→17:39)
[2021-09-16] MEDS: BACTROBAN TOPICAL OINT TOP SCH ×2 (15:00→21:10)
[2021-09-16] MEDS ORDERED: ADACEL or BOOSTRIX TDaP VACCINE IM ONE (16:00)
[2021-09-16] MEDS: TYLENOL 325 MG TAB PO PRN (20:04)
[2021-09-17] MEDS: MOTRIN TAB 800 MG PO PRN (05:47)
[2021-09-17] MEDS: BACTROBAN TOPICAL OINT TOP SCH (06:15)
[2021-09-17] MEDS: COLACE CAP 100 MG PO SCH (08:23)
[2021-09-17] MEDS: PROTONIX TAB 40 MG PO SCH (08:23)
[2021-09-17] MEDS: PRENATAL PLUS PO SCH (08:23)
[2021-09-17] MEDS: TYLENOL 325 MG TAB PO PRN (12:07)
[2021-09-17 12:36] VITALS: BP 111/66
== END 2021-09-17 15:00 | disposition home or self-care (01) | DRG 785 ==
LOC: LD 06:14 → MED/SURG 10:10
PROVIDERS: ADMIT Specialist; ATTEND Specialist